=== PATIENT | female | born 1985 | race Caucasian/White ===

== ENCOUNTER 2017-01-26 16:01 | Emergency (ER) | payer OTHER ==
[~2017-01-26] VITALS: Ht 162.6 cm; Wt 49.9 kg
[~2017-01-26 16:01] MED LIST: AMBIEN 5 MG TABL5 M1 PO; BENTYL 10 MG CA10 M1 PO; CATAPRES0.2 MG PO; LIPITOR 20 MG T20 M1 PO; LISINOPRIL20 MG PO; MYFORTIC360 MG PO; NORCO 5-325 TA1 EACH PO; ONDANSETRON HCL4 M2 PO; PHENERGAN 25 MG25 M1 PO; PREDNISONE 5 MG5 M1 PO; RAPAMUNE1 MG PO; TACROLIMUS0.5 MG PO; TACROLIMUS1 MG PO; ULTRAM 50MG TAB50 MG PO; XANAX1 MG PO; ZOFRAN ODT8 MG PO
[2017-01-26 17:25] LABS: HEMATOCRIT 35.1 % (37.0-47.0); HEMOGLOBIN 11.8 gm/dL (12.0-15.0); MCH 30.1 pg (26.0-34.0); MCHC 33.6 g/dL (28.0-37.0); MCV 89.7 fL (80.0-100.0); PLATELET COUNT 212 thou/uL (150-400); RBC 3.91 mil/uL (4.20-5.00); RDW 12.8 % (10.5-14.5); WBC 7.3 thou/uL (4.0-11.0)
[2017-01-26 17:38] LABS: MANUAL DIFF YES
[2017-01-26 17:43] LABS: CALCIUM 8.9 mg/dL (8.5-10.1); CREATININE 1.6 mg/dL (0.6-1.0); POTASSIUM 4.9 mmol/L (3.5-5.1)
[2017-01-26 17:47] LABS: ALBUMIN 3.6 g/dL (3.4-5.0); TOTAL BILIRUBIN 0.3 mg/dL (<0.1-1.0)
[2017-01-26 17:56] LABS: URINE BILIRUBIN NEGATIVE (Negative); URINE BLOOD NEGATIVE (Negative); URINE COLOR YELLOW; URINE GLUCOSE-RANDOM* NEGATIVE (Negative); URINE KETONES NEGATIVE (Negative); URINE LEUKOCYTES-REFLEX NEGATIVE (Negative); URINE PROTEIN (DIPSTICK) NEGATIVE (Negative); URINE SPECIFIC GRAVITY 1.015 (1.003-1.035); URINE UROBILINOGEN 0.2 E.U./dl (0.2-1.0)
[2017-01-26 18:22] LABS: ABSOLUTE NEUTROPHILS 5.5 thou/uL (1.4-8.2); TOTAL CELL COUNT 100
[2017-01-26] MEDS ORDERED: NORCO 5-325 TA1 EACH PO (19:22)
[2017-01-26] MEDS ORDERED: ZOFRAN ODT4 MG PO (19:29)
[2017-01-26 19:35] VITALS: BP 132/76
[2017-01-28] MEDS ORDERED: LEXAPRO 10 MG T10 M1 PO (16:15)
[2017-01-28] MEDS ORDERED: BUSPIRONE HCL10 MG PO (16:16)
[2017-01-28] MEDS ORDERED: PERCOCET 5-3251 EACH PO (17:20)
[2017-01-28] MEDS ORDERED: PROMS25 WY RECTAL (17:26)
== END 2017-01-26 19:38 | disposition home or self-care (01) ==
LOC: ER 16:01
PROVIDERS: Emergency Medicine
DX: N83.201 Unspecified ovarian cyst, right side (principal); M32.9 Systemic lupus erythematosus, unspecified; K58.9 Irritable bowel syndrome, unspecified; I10 Essential (primary) hypertension; K50.90 Crohn's disease, unspecified, without complications; Z94.0 Kidney transplant status; Z88.6 Allergy status to analgesic agent; Z88.0 Allergy status to penicillin; Z88.1 Allergy status to other antibiotic agents; Z88.8 Allergy status to other drugs, medicaments and biological substances; Z87.891 Personal history of nicotine dependence

== ENCOUNTER 2017-04-05 22:02 | Emergency (ER) | payer OTHER ==
[~2017-04-05] VITALS: Ht 160 cm; Wt 50.4 kg
[~2017-04-05 22:02] MED LIST changes: +BUSPIRONE HCL10 MG PO; +LEXAPRO 10 MG T10 M1 PO; +PERCOCET 5-3251 EACH PO; +PROMS25 WY RECTAL; +ZOFRAN ODT4 MG PO
[2017-04-05] MEDS ORDERED: PROMS25 WY PO (22:17)
[2017-04-05 23:04] LABS: ABSOLUTE NEUTROPHILS 7.2 thou/uL (1.4-8.2); BASOPHILS 0.4 % (0.0-2.0); EOSINOPHILS 0.4 % (0.0-3.0); HEMATOCRIT 32.6 % (37.0-47.0); HEMOGLOBIN 10.8 gm/dL (12.0-15.0); MCH 29.7 pg (26.0-34.0); MCHC 33.3 g/dL (28.0-37.0); MCV 89.2 fL (80.0-100.0); MONOCYTES 6.3 % (1.0-8.0); PLATELET COUNT 242 thou/uL (150-400); POLYS 61.9 % (36.0-66.0); RBC 3.66 mil/uL (4.20-5.00); RDW 13.6 % (10.5-14.5); WBC 11.7 thou/uL (4.0-11.0)
[2017-04-05 23:08] LABS: ANION GAP 11 mmol/L (7-16); BUN 31 mg/dL (7-18); CALCIUM 8.5 mg/dL (8.5-10.1); CHLORIDE 106 mmol/L (98-107); CO2 24 mmol/L (21-32); CREATININE 1.7 mg/dL (0.6-1.0); GLUCOSE 95 mg/dL (74-106); POTASSIUM 4.1 mmol/L (3.5-5.1); SODIUM 141 mmol/L (136-145)
[2017-04-05 23:11] LABS: MANUAL DIFF NO
[2017-04-05 23:14] LABS: ALBUMIN 3.8 g/dL (3.4-5.0); ALKALINE PHOSPHATASE 61 U/L (46-116); DIRECT BILIRUBIN < 0.1 mg/dL (<0.1-0.3); SGOT 9 U/L (15-37); SGPT 19 U/L (30-65); TOTAL BILIRUBIN 0.2 mg/dL (<0.1-1.0); TOTAL PROTEIN 6.8 g/dL (6.4-8.2)
[2017-04-05] MEDS ORDERED: PROMS25 WY RECTAL (23:30)
[2017-04-05] MEDS ORDERED: PHENERGAN 25 MG25 M1 PO (23:30)
[2017-04-06] MEDS ORDERED: OXYCONTIN10 M1 PO (00:39)
[2017-04-06] MEDS ORDERED: ZOFRAN ODT4 MG PO (00:39)
[2017-04-06 01:06] LABS: URINE BILIRUBIN NEGATIVE (Negative); URINE BLOOD NEGATIVE (Negative); URINE COLOR YELLOW; URINE GLUCOSE-RANDOM* NEGATIVE (Negative); URINE KETONES NEGATIVE (Negative); URINE NITRITE NEGATIVE (Negative); URINE PROTEIN (DIPSTICK) NEGATIVE (Negative); URINE UROBILINOGEN 0.2 E.U./dl (0.2-1.0)
[2017-04-06 01:12] VITALS: BP 127/79
== END 2017-04-06 01:35 | disposition home or self-care (01) ==
LOC: ER 22:02
PROVIDERS: Emergency Medicine
DX: G89.29 Other chronic pain (principal); R10.9 Unspecified abdominal pain; R11.2 Nausea with vomiting, unspecified; M32.9 Systemic lupus erythematosus, unspecified; K50.90 Crohn's disease, unspecified, without complications; I10 Essential (primary) hypertension; Z96.653 Presence of artificial knee joint, bilateral; Z90.710 Acquired absence of both cervix and uterus; Z88.6 Allergy status to analgesic agent; Z91.041 Radiographic dye allergy status; Z88.0 Allergy status to penicillin; Z88.2 Allergy status to sulfonamides; Z87.891 Personal history of nicotine dependence